=== PATIENT | female | born 2005 | race Two or more races ===

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

== ENCOUNTER 2024-12-21 16:14 | Emergency (ER) | payer BC ==
[~2024-12-21] VITALS: Ht 152.4 cm; Wt 71.2 kg
[2024-12-21] MEDS: ACETAMINOPHEN 500 MG TAB or CAP PO ONE (16:29)
[2024-12-21] MEDS ORDERED: AMOX875T3 PO (18:30)
[2024-12-21] MEDS ORDERED: LORA-622 PO (18:30)
--- NOTE | 2024-12-21 18:30 | ED.PDOC ---
History of Present Illness HPI Comments 19-year-old female complaining of nasal congestion cough which started yesterday. Cough has been nonproductive, no recent travel, no one else at home sick. Patient states she is 29 weeks . States she has been taking Tylenol and guanfacine with little help. Nothing makes it better, nothing makes it worse. Denies any fever or chills. No shortness a breath. No abdominal pain or cramping. Chief Complaint: Flu like Time Seen by MD: 18:03 Primary Care Provider: none Reviewed Notes: Nurses Notes Allergies: Coded Allergies: Aspirin (Verified Allergy, Mild, RASH, 03/13/17) Information Source: Patient Mode of Arrival: Ambulatory Past Medical History PAST MEDICAL HISTORY: Denies Surgical History: Denies all surgeries STATISTICAL ENGINEER History: No Pertinent STATISTICAL ENGINEER History Family History Family History: Unknown Social History Smoker: Non-Smoker Alcohol: Denies ETOH Use Drugs: Denies Drug Use Lives In: Home Constitutional: denies: chills, diaphoresis, fatigue, fever, malaise, sweats, weakness, others EENTM: reports: nasal discharge, nose congestion; denies: blurred vision, double vision, ear bleeding, ear discharge, ear drainage, ear pain, ear ringing, eye pain, eye redness, hearing loss, mouth pain, mouth swelling, nose pain, photophobia, tearing, throat pain, throat swelling, voice changes, others Respiratory: reports: cough; denies: hemoptysis, orthopnea, SOB at rest, shortness of breath, SOB with excertion, stridor, wheezing, others Cardiovascular: denies: chest pain, dizzy spells, diaphoresis, Dyspnea on exertion, edema, irregular heart beat, left arm pain, lightheadedness, palpitations, PND, syncope, others Gastrointestinal: denies: abdomen distended, abdominal pain, blood streaked bowels, constipated, diarrhea, dysphagia, difficulty swallowing, hematemesis, melena, nausea, poor appetite, poor fluid intake, rectal bleeding, rectal pain, vomiting, others Genitourinary: denies: abnormal vagina bleeding, burning, dyspareunia, dysuria, flank pain, frequency, hematuria, incontinence, pain, , vagina discharge, urgency, others Neurological: denies: dizziness, fainting, headache, left sided numbness, left sided weakness, numbness, paresthesia, pre-existing deficit, right sided numbness, right sided weakness, seizure, speech problems, tingling, tremors, weakness, others Musculoskeletal: denies: back pain, gout, joint pain, joint swelling, muscle pain, muscle stiffness, neck pain, others Integumetry: denies: bruises, change in color, change in hair/nails, dryness, laceration, lesions, lumps, rash, wounds, others Physical Exam General Appearance: No Apparent Distress, Normal HEENT: Normal ENT Inspection, Pharynx Normal, TMs Normal Neck: Full Range of Motion, Non-Tender, Normal, Normal Inspection Respiratory: Chest Non-Tender, Lungs Clear, No Accessory Muscle Use, No Respiratory Distress, Normal Breath Sounds Cardiovascular: No Edema, No JVD, No Murmur, No Gallop, Normal Peripheral Pulses, Regular Rate/Rhythm Breast Exam: Deferred Gastrointestinal: No Organomegaly, Non Tender, No Pulsatile Mass, Normal Bowel Sounds, Soft Genitalia: Deferred Pelvic: Deferred Rectal: Deferred Extremities: No calf tenderness, Normal capillary refill, Normal inspection, Normal range of motion, Non-tender, No pedal edema Musculoskeletal : Apperance: Normal Neurologic: Alert, window shade cutter and mounter II-XII nml as Tested, No Motor Deficits, Normal Affect, Normal Mood, No Sensory Deficits Cerebellar Function: Normal Reflexes: Normal Skin: Dry, Normal Color, Warm Lymphatic: No Adenopathy Was a procedure done? Was a procedure done?: No Differential Dx Considerations may include: URI, influenza, COVID, strep throat, pharyngitis, pneumonia X-Ray, Labs, Meds, VS Vital Signs Date Time Temp Pulse Resp B/P (MAP) Pulse Ox O2 Delivery O2 Flow Rate FiO2 12/21/24 16:29 102.4 12/21/24 16:23 102.4 166 20 114/67 (83) 95 102.4 Current Medications Medications (Trade) Dose Ordered Sig/Santa Route Start Time Stop Time Status Last Admin Acetaminophen (Tylenol Tablet Or Capsule) 1,000 mg ONCE ONCE PO 12/21/24 16:30 12/21/24 16:31 DC 12/21/24 16:29 X-Ray, Labs, Meds, VS Comment Imaging: X-rays and CT scans were reviewed and interpreted by this provider, imaging shows no fractures and no pathological disease. Pending radiology review. Laboratory: Labs reviewed and interpreted by this provider. No significant abnormalities noted. Patient has prior medical visits reviewed. Med reconciliation performed Vital signs reviewed Time of 1ST Reevaluation: 18:30 Reevaluation 1ST: Improved Patient Education/Counseling: Diagnosis, Treatment, Need For Follow Up (Follow up in the emergency department in the next 24-48 hours if symptoms worsen. It w as advised to follow up with your primary care doctor in the next 3-4 days for further evaluation.) Family Education/Counseling: Diagnosis Departure 1 Departure Time of Disposition: 18:28 Impression: Primary Impression: Upper respiratory infection Qualified Codes: J06.9 - Acute upper respiratory infection, unspecified Disposition: HOME / SELF CARE / HOMELESS Condition: Fair e-Prescriptions Amoxicillin Trihydrate (Amoxicillin) 875 Mg Tab 1 TAB PO BID for 7 Days, #14 TAB Prov: LUKASZ HAYWARD 12/21/24 Loratadine (Claritin) 10 Mg Tab 1 TAB PO DAILY, #30 TAB 5 Refills Prov: LUKASZ HAYWARD 12/21/24 Discharged With: Self Critical Care Note Critical Care Time?: No Stability Stability form required: No Heart Score Heart Score: Heart Score Response (Comments) Value History N/A 0 EKG N/A 0 Age N/A 0 Risk Factors N/A 0 Troponin N/A 0 Total 0 LUKASZ HAYWARD December 21, 2024 18:30
[2024-12-21 18:44] VITALS: BP 113/61; PULSE 121; RESP 16; TEMP 99; O2SAT 99
== END 2024-12-21 18:42 | disposition home or self-care (01) ==
LOC: ER 16:14
DX: O99.513 Diseases of the respiratory system complicating pregnancy, third trimester (principal); J06.9 Acute upper respiratory infection, unspecified; Z3A.29 29 weeks gestation of pregnancy; Z88.6 Allergy status to analgesic agent

== ENCOUNTER 2025-01-21 12:53 | Observation (INO) | payer BC ==
[~2025-01-21 12:53] MED LIST: AMOX875T3 PO; LORA-622 PO
[2025-01-21] MEDS ORDERED: PREN-96 PO (13:48)
--- NOTE | 2025-01-21 13:53 | DVH ---
OB ULTRASOUND, LIMITED CLINICAL INDICATION: Grade 3 placenta TECHNIQUE: Multiple grayscale ultrasound and M-mode images were obtained of the pelvis for evaluation of intrauterine . COMPARISON: None FINDINGS: A single living fetus is seen in cephalic presentation. Biophysical profile: 03/12 breathin movements: 2 tone: 2 Amniotic fluid: 2 Placenta: Fundal/posterior, grade 3. Amniotic fluid: Visibly normal. DAMIAN 14.6 cm heart rate: 146 beats/min. A complete anatomic survey was not performed on this exam. IMPRESSION: 1. Grade 3 fundal/ posterior placenta 2. Biophysical profile: 03/12 3. Per the certified residential medication aide, the breathing appeared labored.
--- NOTE | 2025-01-22 14:26 | DVHDS2 ---
Physician Discharge Progress N Final Diagnosis: grade 3 placenta 34 wks Operations or Procedures: Operations or Procedures nst reactive reviwed,sono Condition on Discharge: Good Disposition: Home Discharge Instructions: Diet: Regular Activity: No Restrictions, As Tolerated Medications: na Follow Up Care: Specialist: 1w Discharge Statement: "Patient was advised to return to the ER or call 911 if any headaches, dizziness, shortness of breath, chest pain, abdominal pain, bleeding, fevers, or worsening of medical condition. Patient was counseled about treatment plan, medications, possible side effects, patientverbalized understanding. All questions were answered to the best of my ability. This discharge took greater then 30 minutes in planning, reviewing documentation, counseling the patient, and discussing with other team members." Visit Coding OBGYN Date of Service: Jan 22, 2025 Billing Provider: MERVAT SCHILLING DO VICE PRESIDENT PLANNING Common Visit Codes: 10354-KJOCXQO OBS CARE (HIGH) VICE PRESIDENT PLANNING Procedure Codes: 46537-34- NON-STRESS TEST MERVAT SCHILLING DO Jan 22, 2025 14:26
[2025-01-29] MEDS ORDERED: CEPH250C PO (20:08)
== END 2025-01-21 14:22 | disposition home or self-care (01) ==
LOC: LDRP 12:53 → UNDOADMOB 12:53 → LDRP 13:03
PROVIDERS: ADMIT Obstetrics & Gynecology; ATTEND Obstetrics & Gynecology
DX: O43.893 Other placental disorders, third trimester (principal); Z3A.34 34 weeks gestation of pregnancy; Z79.899 Other long term (current) drug therapy; Z98.890 Other specified postprocedural states
CPT/HCPCS: 76818; 81002; 94760; G0378; 59025; 76819

== ENCOUNTER 2025-01-28 13:53 | Observation (INO) | payer BC ==
[~2025-01-28 13:53] MED LIST changes: +PREN-96 PO
--- NOTE | 2025-01-28 15:34 | DVH ---
BIOPHYSICAL PROFILE HISTORY: Grade 3 placenta TECHNIQUE: Multiple real-time grayscale sonographic images through the gravid uterus of the fetus wi th duplex Doppler color flow. FINDINGS: BIOPHYSICAL PROFILE: breathing score: 2 movement score: 2 tone score: 2 Quantitative DAMIAN score: 2 Total score: 8 out of 8 Placenta fundal /posteriorly positioned. Multiple placental hypoechoic lesions that appear avascular, likely placental lakes. lie cephalic. Heart rate of 145 beats per minute. IMPRESSION: Biophysical profile score: 8 out of 8
--- NOTE | 2025-01-29 13:43 | DVHDS2 ---
Physician Discharge Progress N Final Diagnosis: iup at 35wks with previous cs Operations or Procedures: Operations or Procedures nst reviwed reactive ,sono Condition on Discharge: Good Disposition: Home Discharge Instructions: Diet: Regular Activity: No Restrictions, As Tolerated Medications: na Follow Up Care: Specialist: 1w Discharge Statement: "Patient was advised to return to the ER or call 911 if any headaches, dizziness, shortness of breath, chest pain, abdominal pain, bleeding, fevers, or worsening of medical condition. Patient was counseled about treatment plan, medications, possible side effects, patientverbalized understanding. All questions were answered to the best of my ability. This discharge took greater then 30 minutes in planning, reviewing documentation, counseling the patient, and discussing with other team members." Visit Coding OBGYN Date of Service: Jan 28, 2025 Billing Provider: MERVAT SCHILLING DO MIXER OPERATOR RAW SALT Common Visit Codes: 92218-UNTSDAQ OBS CARE (HIGH) MIXER OPERATOR RAW SALT Procedure Codes: 30519-24- NON-STRESS TEST MERVAT SCHILLING DO Jan 29, 2025 13:43
[2025-01-29] MEDS ORDERED: CEPH250C PO ×2 (20:08)
== END 2025-01-28 15:25 | disposition home or self-care (01) ==
LOC: LDRP 13:53
PROVIDERS: ADMIT Obstetrics & Gynecology; ATTEND Obstetrics & Gynecology
DX: O62.9 Abnormality of forces of labor, unspecified (principal); Z3A.35 35 weeks gestation of pregnancy; Z79.899 Other long term (current) drug therapy; Z98.891 History of uterine scar from previous surgery
CPT/HCPCS: 76818; 81002; 94760; G0378; 59025; 76819

== ENCOUNTER 2025-01-29 17:25 | Observation (INO) | payer BC ==
[~2025-01-29] VITALS: Ht 152.4 cm; Wt 75.7 kg
[2025-01-29 19:44] VITALS: TEMP 99.5
[2025-01-29] MEDS: ACETAMINOPHEN 325 MG TAB PO ONE (19:44)
[2025-01-29 19:57] LABS: Urine Bacteria MANY /hpf (None Seen); Urine Blood 1+ /uL (Negative); Urine Clarity Turbid (Clear); Urine Color Light-Orange (Yellow); Urine Hyaline Cast FEW /lpf (0 - 2); Urine Mucus FEW (None Seen); Urine Protein, UAD TRACE (Negative); Urine Squamous Epithelial Cell MOD /hpf (<5); Urine Urobilinogen Normal (Negative); Urine WBC 33 /HPF (0-5); Urine WBC Clumps PRESENT /hpf (None Seen)
[2025-01-29] MEDS ORDERED: CEPH250C PO ×2 (20:08)
== END 2025-01-29 20:22 | disposition home or self-care (01) ==
LOC: ER 17:25 → LDRP 17:43
PROVIDERS: ADMIT Obstetrics & Gynecology; ATTEND Obstetrics & Gynecology
DX: O62.9 Abnormality of forces of labor, unspecified (principal); O99.891 Other specified diseases and conditions complicating pregnancy; M54.9 Dorsalgia, unspecified; Z3A.00 Weeks of gestation of pregnancy not specified; Z79.899 Other long term (current) drug therapy
CPT/HCPCS: 59025; 81001; 87086; 94760; G0378

== ENCOUNTER 2025-02-04 10:09 | Observation (INO) | payer BC ==
[~2025-02-04 10:09] MED LIST changes: +CEPH250C PO
--- NOTE | 2025-02-04 19:22 | DVH ---
BIOPHYSICAL PROFILE HISTORY: Grade 3 placenta Comparison Study: US BIOPHYSICAL PROFILE on DOS: 01/28/25, US BIOPHYSICAL PROFILE on DOS: 01/21/25 TECHNIQUE: Multiple real-time grayscale sonographic images through the gravid uterus of the fetus wi th duplex Doppler color flow and M-mode spectral analysis FINDINGS: BIOPHYSICAL PROFILE: breathing score: 2 movement score: 2 tone score: 2 Quantitative DAMIAN score: 2 (DAMIAN: 10.7 Cm.) Total score: 8/8 The cervix is not visualized Single live fetus in cephalic presentation. heart rate 155 beats per minute. Grade 3, fundal placenta without previa or abruption IMPRESSION: Biophysical profile score: 8
--- NOTE | 2025-02-05 07:44 | DVHDS2 ---
Physician Discharge Progress N Final Diagnosis: gdm 36wks Operations or Procedures: Operations or Procedures nst reactive reviwed,sono Condition on Discharge: Good Disposition: Home Discharge Instructions: Diet: Regular Activity: No Restrictions, As Tolerated Medications: na Follow Up Care: Specialist: 3d Discharge Statement: "Patient was advised to return to the ER or call 911 if any headaches, dizziness, shortness of breath, chest pain, abdominal pain, bleeding, fevers, or worsening of medical condition. Patient was counseled about treatment plan, medications, possible side effects, patientverbalized understanding. All questions were answered to the best of my ability. This discharge took greater then 30 minutes in planning, reviewing documentat ion, counseling the patient, and discussing with other team members." Visit Coding OBGYN Date of Service: Feb 04, 2025 Billing Provider: MERVAT SCHILLING DO IMPROVEMENT SPEC Common Visit Codes: [id number] INP/OBS CARE (HIGH) IMPROVEMENT SPEC Procedure Codes: 23438-44- NON-STRESS TEST MERVAT SCHILLING DO Feb 05, 2025 07:44
== END 2025-02-04 17:26 | disposition home or self-care (01) ==
LOC: LDRP 16:10
PROVIDERS: ADMIT Obstetrics & Gynecology; ATTEND Obstetrics & Gynecology
DX: O24.419 Gestational diabetes mellitus in pregnancy, unspecified control (principal); Z3A.36 36 weeks gestation of pregnancy; Z79.899 Other long term (current) drug therapy; Z98.890 Other specified postprocedural states
CPT/HCPCS: 76818; 81002; 94760; G0378; 59025; 76819

== ENCOUNTER 2025-02-11 02:37 | Observation (INO) | payer BC ==
[~2025-02-11] VITALS: Ht 152.4 cm; Wt 666.8 kg
--- NOTE | 2025-02-11 16:18 | DVH ---
BIOPHYSICAL PROFILE HISTORY: grade 3 placenta TECHNIQUE: Multiple transabdominal real-time grayscale sonographic images through the gravid uterus of the fetus with duplex Doppler color flow and M-mode spectral analysis FINDINGS: BIOPHYSICAL PROFILE: breathing score: 2 movement score: 2 tone score: 2 Quantitative DAMIAN score: 2 (DAMIAN: 15.3 Cm.) Total score: 8 The cervix is not definitely visualized Single live fetus in cephalic presentation. heart rate 149 beats per minute. Grade 3 fundal placenta without previa or abruption No Nuchal cord is visualized . The cord appears to be draped across the face. IMPRESSION: Biophysical profile score: 8
--- NOTE | 2025-02-16 15:09 | DVHDS2 ---
Physician Discharge Progress N Final Diagnosis: gdm 37wks Operations or Procedures: Operations or Procedures nst reactive reviwed.sono Condition on Discharge: Good Disposition: Home Discharge Instructions: Diet: Regular Activity: Light activity Medications: na Follow Up Care: Specialist: 1w Discharge Statement: "Patient was advised to return to the ER or call 911 if any headaches, dizziness, shortness of breath, chest pain, abdominal pain, bleeding, fevers, or worsening of medical condition. Patient was counseled about treatment plan, medications, possible side effects, patientverbalized understanding. All questions were answered to the best of my ability. This discharge took greater then 30 minutes in planning, reviewing documentation, counseling the patient, and discussing with other team members." Visit Coding OBGYN Date of Service: Feb 11, 2025 Billing Provider: MERVAT SCHILLING DO SAMPLE TAILOR Common Visit Codes: [id number] OBS CARE (HIGH) SAMPLE TAILOR Procedure Codes: 05829-61- NON-STRESS TEST MERVAT SCHILLING DO Feb 16, 2025 15:09
== END 2025-02-11 16:25 | disposition home or self-care (01) ==
LOC: LDRP 14:50
PROVIDERS: ADMIT Obstetrics & Gynecology; ATTEND Obstetrics & Gynecology
DX: Z36.89 Encounter for other specified antenatal screening (principal); Z3A.37 37 weeks gestation of pregnancy; Z79.899 Other long term (current) drug therapy; Z98.890 Other specified postprocedural states
CPT/HCPCS: 76818; 81002; 94760; G0378; 59025; 76819

== ENCOUNTER 2025-02-18 15:50 | Observation (INO) | payer BC ==
--- NOTE | 2025-02-18 17:17 | DVH ---
BIOPHYSICAL PROFILE HISTORY: Grade 3 placenta TECHNIQUE: Multiple transabdominal real-time grayscale sonographic images through the gravid uterus of the fetus with duplex Doppler color flow and M-mode spectral analysis FINDINGS: BIOPHYSICAL PROFILE: breathing score: 2 movement score: 2 tone score: 2 Quantitative DAMIAN score: 2 (DAMIAN: 9.3 Cm.) Total score: 8/8 The cervix not well seen Single live fetus in vertex presentation. heart rate 160 beats per minute. Fundal Grade 3 placenta without previa or abruption Single live fetus at 30 weeks 1 day Biophysical profile score 8/8 corresponding to an CARLEEN of 03/03/2025 IMPRESSION: 1. Biophysical profile score: 8/8 HS:Y
--- NOTE | 2025-02-19 13:43 | DVHDS2 ---
Physician Discharge Progress N Final Diagnosis: grade 3 [id number] Operations or Procedures: Operations or Procedures nst reactive reviwed,sono Condition on Discharge: Good Disposition: Home Discharge Instructions: Diet: Regular Activity: No Restrictions, As Tolerated Medications: na Follow Up Care: Specialist: 4d Discharge Statement: "Patient was advised to return to the ER or call 911 if any headaches, dizziness, shortness of breath, chest pain, abdominal pain, bleeding, fevers, or worsening of medical condition. Patient was counseled about treatment plan, medications, possible side effects, patientverbalized understanding. All questions were answered to the best of my ability. This discharge took greater then 30 minutes in planning, reviewing documentation, counseling the patient, and discussing with other team members." Visit Coding OBGYN Date of Service: Feb 18, 2025 Billing Provider: MERVAT SCHILLING DO GRADES 1 6 TUTOR Common Visit Codes: 82995-NPMQVPS OBS CARE (HIGH) GRADES 1 6 TUTOR Procedure Codes: 02644-91- NON-STRESS TEST MERVAT SCHILLING DO Feb 19, 2025 13:43
== END 2025-02-18 17:30 | disposition home or self-care (01) ==
LOC: LDRP 15:50
PROVIDERS: ADMIT Obstetrics & Gynecology; ATTEND Obstetrics & Gynecology
DX: O43.893 Other placental disorders, third trimester (principal); Z3A.38 38 weeks gestation of pregnancy; Z79.899 Other long term (current) drug therapy; Z98.890 Other specified postprocedural states
CPT/HCPCS: 76818; 81002; 94760; G0378; 59025; 76819

== ENCOUNTER 2025-02-23 11:30 | Observation (INO) | payer BC ==
[2025-02-23 12:20] LABS: Hematocrit 33.8 % (36.0-46.0); Hemoglobin 11.0 g/dL (12.2-16.2); Mean Corpuscular Hemoglobin 23.1 pg (28.0-32.0); Mean Corpuscular Volume 70.8 fL (80.0-100.0); Nucleated Red Blood Cells % 0.1 %
[2025-02-23 12:32] LABS: Albumin 3.9 g/dL (3.2-4.8); Anion Gap 12 (5-15); BUN/Creatinine Ratio 11.1 (10.0-20.0); Calcium 9.1 mg/dL (8.7-10.4); Potassium 3.7 mmol/L (3.5-5.1); Sodium 139 mmol/L (136-145); Total Protein 6.4 g/dL (5.7-8.2); Uric Acid 5.4 mg/dL (3.1-7.8)
[2025-02-23 12:33] LABS: Alanine Aminotransferase < 9 U/L (7-40); Alkaline Phosphatase 333 U/L (46-116); Bilirubin, Total 0.3 mg/dL (0.2-1.0); Blood Urea Nitrogen 6 mg/dL (9-23); Carbon Dioxide 19 mmol/L (20-31); Chloride 108 mmol/L (98-107); Glucose 110 mg/dL (74-106)
[2025-02-23 12:39] LABS: INR 0.95 (0.9-1.15); Partial Thromboplastin Time 26.8 SEC (24.5-34.5); Prothrombin Time 10.1 sec (9.3-11.8)
[2025-02-23 12:44] LABS: Protein, Urine 33.9 mg/dL (1-14)
[2025-02-23 12:45] LABS: Urine Protein, UAD TRACE (Negative)
--- NOTE | 2025-02-23 13:11 | DVH ---
BIOPHYSICAL PROFILE HISTORY: PIH TECHNIQUE: Multiple transabdominal real-time grayscale sonographic images through the gravid uterus of the fetus with duplex Doppler color flow and M-mode spectral analysis FINDINGS: BIOPHYSICAL PROFILE: breathing score: 2 movement score: 2 tone score: 2 Quantitative DAMIAN score: 2 (DAMIAN: 14.0 Cm.) Total score: 8 The cervix not well visualized. Single live fetus in cephalic presentation. heart rate 138 beats per minute. Grade 3 fundal placenta without previa or abruption IMPRESSION: Biophysical profile score: 8
--- NOTE | 2025-02-23 18:41 | DVHDS2 ---
Physician Discharge Progress N Final Diagnosis: ruled out preeclampsia Operations or Procedures: Operations or Procedures S: 19yo IUP@38.6wks, Pt was sent down from Dr. Ewing's office for elevated BP. Denies UCs/LOF/VB/GUADALUPE/vision changes/RUQ pain. Endorses +FM. PNC complicated by grade 3 placenta. O: VSS, normotensive NST reactive Laboratory Tests Test 02/23/25 11:50 02/23/25 12:00 Range/Units White Blood Count 8.2 4.4-10.8 10^3/uL Red Blood Count 4.77 4.0-5.20 10^6/uL Hemoglobin 11.0 L 12.2-16.2 g/dL Hematocrit 33.8 L 36.0-46.0 % Mean Corpuscular Volume 70.8 L 80.0-100.0 fL Mean Corpuscular Hemoglobin 23.1 L 28.0-32.0 pg Mean Corpuscular Hemoglobin Concent 32.6 32.0-36.0 g/dL Red Cell Distribution Width 22.7 H 11.8-14.3 % Platelet Count 302 140-450 10^3/uL Mean Platelet Volume 7.9 6.9-10.8 fL Neutrophils (%) (Auto) 66.9 37.0-80.0 % Lymphocytes (%) (Auto) 22.5 10.0-50.0 % Monocytes (%) (Auto) 8.7 0.0-12.0 % Eosinophils (%) (Auto) 1.5 0.0-7.0 % Basophils (%) (Auto) 0.4 0.0-2.0 % Neutrophils # (Auto) 5.5 1.6-8.6 10 ^3/uL Lymphocytes # (Auto) 1.8 0.4-5.4 10 ^3/uL Monocytes # (Auto) 0.7 0-1.3 10 ^3/uL Eosinophils # (Auto) 0.1 0-0.8 10 ^3/uL Basophils # (Auto) 0 0-0.2 10 ^3/uL Nucleated Red Blood Cells 0.1 % Prothrombin Time 10.1 9.3-11.8 sec Prothrombin Time INR 0.95 0.9-1.15 Activated Partial Thromboplast Time 26.8 24.5-34.5 SEC Sodium Level 139 136-145 mmol/L Potassium Level 3.7 3.5-5.1 mmol/L Chloride Level 108 H 98-107 mmol/L Carbon Dioxide Level 19 L 20-31 mmol/L Anion Gap 12 5-15 Blood Urea Nitrogen 6 L 9-23 mg/dL Creatinine 0.54 L 0.550-1.02 mg/dL Glomerular Filtration Rate Calc 134 >90 mL/min BUN/Creatinine Ratio 11.1 10.0-20.0 Serum Glucose 110 H 74-106 mg/dL Uric Acid 5.4 3.1-7.8 mg/dL Calcium Level 9.1 8.7-10.4 mg/dL Total Bilirubin 0.3 0.2-1.0 mg/dL Aspartate Amino Transferase (AST) 15 13-40 U/L Alanine Aminotransferase (ALT) < 9 7-40 U/L Alkaline Phosphatase 333 H 46-116 U/L Total Protein 6.4 5.7-8.2 g/dL Albumin 3.9 3.2-4.8 g/dL Urine Color Yellow Yellow Urine Clarity Clear Clear Urine pH 6.5 5.0-9.0 Urine Specific Junction 1.017 1.001-1.035 Urine Protein Trace H Negative Urine Ketones Negative Negative Urine Blood Trace H Negative /uL Urine Nitrite Negative Negative Urine Bilirubin Negative Negative Urine Urobilinogen Normal Negative mg/dL Urine Leukocyte Esterase Negative Negative /uL Urine RBC 4 0 - 4 /hpf Urine Microscopic WBC 2 0-5 /HPF Urine Squamous Epithelial Cells Few <5 /hpf Urine Bacteria None seen None Seen /hpf Urine Mucus Few None Seen Urine Creatinine 139.91 H 30.0-125.0 mg/dL Urine Protein/Creatinine Ratio 0.24 Urine Glucose Normal Normal mg/dL Urine Total Protein 33.9 H 1-14 mg/dL A: 19yo IUP@38.6wks ruled out preeclampsia P: D/C home Plan to return with 24 hour urine collection on saturday02/26/25 when you return for your schedule IOL for grade 3 placenta. FKC/preE/labor precautions reviewed Dr. Ewing consulted, agrees with POC. Other Interventions Other Interventions [facility] [id number] [place] [id number] Ph: [phone] DIAGNOSTIC IMAGING Diagnostic Imaging Report : [id number] Signed PATIENT: NETTE MONTEMAYOR ACCT: [id number] UNIT: [id number] : 2005 [address]: [facility] ROOM / BED: TRIAGE3 / A AGE / SEX: 19 / F ADM STATUS: ADM IN SERVICE [id number] ORDERING PHYSICIAN: GEORGE MCKINNEY CNM PROCEDURE(s): BPP - BIOPHYSICAL PROFILE REASON: PIH ORDER NUMBER(s): [id number], ACCESSION NUMBER(s): [id number] BIOPHYSICAL PROFILE HISTORY: PIH TECHNIQUE: Multiple transabdominal real-time grayscale sonographic images through the gravid uterus of the fetus with duplex Doppler color flow and M-mode spectral analysis FINDINGS: BIOPHYSICAL PROFILE: breathing score: 2 movement score: 2 tone score: 2 Quantitative DAMIAN score: 2 (DAMIAN: 14.0 Cm.) Total score: 8 The cervix not well visualized. Single live fetus in cephalic presentation. heart rate 138 beats per minute. Grade 3 fundal placenta without previa or abruption IMPRESSION: Biophysical profile score: 8 ATED BY: MEDINA SINGER MD DICTATED DATE/TIME: 02/23/25 1309 SIGNED BY: MEDINA SINGER MD SIGNED DATE/TIME: 02/23/25 1309 CC: Condition on Discharge: Stable Disposition: Home Discharge Instructions: Diet: Regular Activity: No Restrictions, As Tolerated Medications: Continue all prescription medication exactly as prescribed Follow Up Care: Specialist: Plan to return with 24 hour urine collection on saturday02/26/25 when you return for your schedule IOL for grade 3 placenta. Discharge Statement: "Patient was advised to return to the ER or call 911 if any headaches, dizziness, shortness of breath, chest pain, abdominal pain, bleeding, fevers, or worsening of medical condition. Patient was counseled about treatment plan, medications, possible side effects, patientverbalized understanding. All questions were answered to the best of my ability. This discharge took greater then 30 minutes in planning, reviewing documenta tion, counseling the patient, and discussing with other team members." Visit Coding OBGYN Date of Service: Feb 23, 2025 Billing Provider: GEORGE MCKINNEY CNM LICENSED LIFE AND HEALTH AGENT Common Visit Codes: [id number] OBS CARE (HIGH) LICENSED LIFE AND HEALTH AGENT Procedure Codes: 91944-91- NON-STRESS TEST GEORGE MCKINNEY Feb 23, 2025 18:41
== END 2025-02-23 13:40 | disposition home or self-care (01) ==
LOC: LDRP 11:30
PROVIDERS: ADMIT Obstetrics & Gynecology; ATTEND Obstetrics & Gynecology
DX: O13.3 Gestational [pregnancy-induced] hypertension without significant proteinuria, third trimester (principal); Z3A.38 38 weeks gestation of pregnancy; Z79.899 Other long term (current) drug therapy
CPT/HCPCS: 36415; 76818; 80053; 81001; 81002; 82570; 84156; 84550; 85025; 85610; 85730; G0378; 59025; 76819

== ENCOUNTER 2025-02-25 05:46 | Inpatient (IN) | payer BC ==
[~2025-02-25] VITALS: Ht 152.4 cm; Wt 77.1 kg
[2025-02-26] MEDS ORDERED: LIDOCAINE 2%HCL (LOCAL ANESTH.) INJ 20ML MDV IJ PRN (20:15)
[2025-02-26] MEDS ORDERED: NALBUPHINE HCL 10 MG/1ml INJECTION IV PRN (20:15)
[2025-02-26 20:54] LABS: Hematocrit 34.3 % (36.0-46.0); Hemoglobin 11.4 g/dL (12.2-16.2); Mean Corpuscular Hemoglobin 23.4 pg (28.0-32.0); Mean Corpuscular Volume 70.3 fL (80.0-100.0); Nucleated Red Blood Cells % 0.1 %
[2025-02-26 21:08] LABS: INR 0.95 (0.9-1.15); Partial Thromboplastin Time 26.4 SEC (24.5-34.5); Prothrombin Time 10.1 sec (9.3-11.8)
[2025-02-26 21:12] LABS: Albumin 4.3 g/dL (3.2-4.8); Anion Gap 13 (5-15); BUN/Creatinine Ratio 16.7 (10.0-20.0); Bilirubin, Total 0.3 mg/dL (0.2-1.0); Blood Urea Nitrogen 10 mg/dL (9-23); Calcium 10.0 mg/dL (8.7-10.4); Potassium 4.0 mmol/L (3.5-5.1); Sodium 139 mmol/L (136-145); Total Protein 6.9 g/dL (5.7-8.2)
[2025-02-26 21:13] LABS: Alanine Aminotransferase < 9 U/L (7-40); Alkaline Phosphatase 365 U/L (46-116); Carbon Dioxide 19 mmol/L (20-31); Chloride 107 mmol/L (98-107); Glucose 74 mg/dL (74-106)
[2025-02-26] MEDS: LACTATED RINGER'S 1,000 ML IV SCH (22:10)
--- NOTE | 2025-02-26 23:41 | DVHPN2 ---
CNM Labor Progress Note Date and Time Seen Date Seen: Feb 26, 2025 Time Seen: 23:00 Subjective Patient reports: No new complaints Subjective Comment Patient is 19 y/o Here for IOL for grade 3 placenta Monitoring Method Monitoring Method: External Heart Rate Heart Rate Baseline: 135 Heart Rate Variability: Moderate Presence of FHR Accelerations: Yes Presence of FHR Decelerations: No Changes in Trends of Patterns: No Are all 5 Components of the FH: Yes Contractions Contractions Frequency: Other Duration of Contraction: 60 Contractions Intensity: Mild Contractions Resting Tone: Relaxed If NO What Corrective Measures: 1000 ml IVF Hydration Membranes Membranes: Intact Vaginal Exam Vag Exam Deferred: No Vaginal Exam Dilation: 1 (1.5) Vaginal Exam Effacement: 75 Vaginal Exam Station: -3 Vaginal Exam Presentation: VTX Vaginal Exam Show: None Medications Medications - Pitocin: No Medications - Pain Medications: Start Misoprostal @ 0400 Medication - Epidural: No Lab Results Lab Results Current Medications Medications (Trade) Dose Ordered Sig/Santa Start Time Stop Time Status Last Admin Dose Admin Lactated Ringer's 1,000 ml @ 125 mls/hr Q8H 02/26/25 20:15 02/26/25 22:45 125 MLS/HR Nalbuphine HCl (Nubain) 10 mg Q4HP PRN 02/26/25 20:15 Witch Tatiana (Tucks) 1 pad PRN PRN 02/26/25 20:15 Sodium Lauryl Sulfate (Phisoderm) 240 ml PRN PRN 02/26/25 20:15 Benzocaine (Dermoplast) 1 applic PRN PRN 02/26/25 20:15 Misoprostol (Cytotec) 50 mcg Q4HPRN PRN 02/26/25 20:15 Lidocaine HCl (Xylocaine) 20 ml ONCE PRN 02/26/25 20:15 Laboratory Tests Test 02/26/25 20:35 Range/Units White Blood Count 7.9 4.4-10.8 10^3/uL Red Blood Count 4.87 4.0-5.20 10^6/uL Hemoglobin 11.4 L 12.2-16.2 g/dL Hematocrit 34.3 L 36.0-46.0 % Mean Corpuscular Volume 70.3 L 80.0-100.0 fL Mean Corpuscular Hemoglobin 23.4 L 28.0-32.0 pg Mean Corpuscular Hemoglobin Concent 33.3 32.0-36.0 g/dL Red Cell Distribution Width 24.2 H 11.8-14.3 % Platelet Count 336 140-450 10^3/uL Mean Platelet Volume 8.0 6.9-10.8 fL Neutrophils (%) (Auto) 65.5 37.0-80.0 % Lymphocytes (%) (Auto) 23.1 10.0-50.0 % Monocytes (%) (Auto) 9.7 0.0-12.0 % Eosinophils (%) (Auto) 1.2 0.0-7.0 % Basophils (%) (Auto) 0.5 0.0-2.0 % Neutrophils # (Auto) 5.2 1.6-8.6 10 ^3/uL Lymphocytes # (Auto) 1.8 0.4-5.4 10 ^3/uL Monocytes # (Auto) 0.8 0-1.3 10 ^3/uL Eosinophils # (Auto) 0.1 0-0.8 10 ^3/uL Basophils # (Auto) 0 0-0.2 10 ^3/uL Nucleated Red Blood Cells 0.1 % Prothrombin Time 10.1 9.3-11.8 sec Prothrombin Time INR 0.95 0.9-1.15 Activated Partial Thromboplast Time 26.4 24.5-34.5 SEC Sodium Level 139 136-145 mmol/L Potassium Level 4.0 3.5-5.1 mmol/L Chloride Level 107 98-107 mmol/L Carbon Dioxide Level 19 L 20-31 mmol/L Anion Gap 13 5-15 Blood Urea Nitrogen 10 9-23 mg/dL Creatinine 0.60 0.550-1.02 mg/dL Glomerular Filtration Rate Calc 131 >90 mL/min BUN/Creatinine Ratio 16.7 10.0-20.0 Serum Glucose 74 74-106 mg/dL Calcium Level 10.0 8.7-10.4 mg/dL Total Bilirubin 0.3 0.2-1.0 mg/dL Aspartate Amino Transferase (AST) 17 13-40 U/L Alanine Aminotransferase (ALT) < 9 7-40 U/L Alkaline Phosphatase 365 H 46-116 U/L Total Protein 6.9 5.7-8.2 g/dL Albumin 4.3 3.2-4.8 g/dL Treponema pallidum Antibody Non-reactive Negative Hepatitis B Surface Antigen Pending Hepatitis C Antibody Pending HIV (1&2) Antibody Negative Negative Consulting with Consulting with: None Plan Plan discussed with: Patient Visit Coding OBGYN Date of Service: Feb 26, 2025 Billing Provider: MERVAT SCHILLING DO ULTRASONIC TESTER Common Visit Codes: [id number] OBS CARE (MOD) ANNAMARIE SCHNEIDER CNMJul 2024 23:41
[2025-02-27 00:01] LABS: Urine Protein, UAD TRACE (Negative)
[2025-02-27 00:23] LABS: Amphetamine Screen, Urine Neg (NEGATIVE); Barbiturate Scree,Urine Neg (NEGATIVE); Benzodiazephine Screen, Urine Neg (NEGATIVE); Cannabinoid Screen, Urine Neg (NEGATIVE); Cocaine Screen, Urine Neg (NEGATIVE); Opiate Scree,Urine Neg (NEGATIVE); Phencyclidine Screen, Urine Neg (NEGATIVE)
[2025-02-27 02:10] LABS: Protein, Urine 47.9 mg/dL (1-14)
[2025-02-27 02:45] LABS: Protein, Urine 18.9 mg/dL (1-14)
[2025-02-27 02:48] LABS: 24 Hr. Total Protein, Urine 283.5 mg/24 Hr (<149.1); Urine Total Volume, 24 Hours 1500.0 mL
--- NOTE | 2025-02-27 06:27 | DVHPN2 ---
[facility] Labor Progress Note Date and Time Seen Date Seen: Feb 27, 2025 Time Seen: 06:20 Subjective Patient reports: No new complaints Subjective Comment First dose of Misoprostol 50 mcg given @ 0400 Monitoring Method Monitoring Method: External Heart Rate Heart Rate Baseline: 125 Heart Rate Variability: Moderate Presence of FHR Accelerations: Yes Presence of FHR Decelerations: No Changes in Trends of Patterns: No Are all 5 Components of the FH: Yes Contractions Contractions Frequency: Occasional Contractions Intensity: Mild Membranes Membranes: Intact Lab Results Lab Results Current Medications Medications (Trade) Dose Ordered Sig/Santa Start Time Stop Time Status Last Admin Dose Admin Lactated Ringer's 1,000 ml @ 125 mls/hr Q8H 02/26/25 20:15 02/26/25 22:45 125 MLS/HR Nalbuphine HCl (Nubain) 10 mg Q4HP PRN 02/26/25 20:15 Witch Tatiana (Tucks) 1 pad PRN PRN 02/26/25 20:15 Sodium Lauryl Sulfate (Phisoderm) 240 ml PRN PRN 02/26/25 20:15 Benzocaine (Dermoplast) 1 applic PRN PRN 02/26/25 20:15 Misoprostol (Cytotec) 50 mcg Q4HPRN PRN 02/26/25 20:15 02/27/25 04:00 50 MCG Lidocaine HCl (Xylocaine) 20 ml ONCE PRN 02/26/25 20:15 Laboratory Tests Test 02/26/25 20:35 02/26/25 20:20 Range/Units White Blood Count 7.9 4.4-10.8 10^3/uL Red Blood Count 4.87 4.0-5.20 10^6/uL Hemoglobin 11.4 L 12.2-16.2 g/dL Hematocrit 34.3 L 36.0-46.0 % Mean Corpuscular Volume 70.3 L 80.0-100.0 fL Mean Corpuscular Hemoglobin 23.4 L 28.0-32.0 pg Mean Corpuscular Hemoglobin Concent 33.3 32.0-36.0 g/dL Red Cell Distribution Width 24.2 H 11.8-14.3 % Platelet Count 336 140-450 10^3/uL Mean Platelet Volume 8.0 6.9-10.8 fL Neutrophils (%) (Auto) 65.5 37.0-80.0 % Lymphocytes (%) (Auto) 23.1 10.0-50.0 % Monocytes (%) (Auto) 9.7 0.0-12.0 % Eosinophils (%) (Auto) 1.2 0.0-7.0 % Basophils (%) (Auto) 0.5 0.0-2.0 % Neutrophils # (Auto) 5.2 1.6-8.6 10 ^3/uL Lymphocytes # (Auto) 1.8 0.4-5.4 10 ^3/uL Monocytes # (Auto) 0.8 0-1.3 10 ^3/uL Eosinophils # (Auto) 0.1 0-0.8 10 ^3/uL Basophils # (Auto) 0 0-0.2 10 ^3/uL Nucleated Red Blood Cells 0.1 % Prothrombin Time 10.1 9.3-11.8 sec Prothrombin Time INR 0.95 0.9-1.15 Activated Partial Thromboplast Time 26.4 24.5-34.5 SEC Sodium Level 139 136-145 mmol/L Potassium Level 4.0 3.5-5.1 mmol/L Chloride Level 107 98-107 mmol/L Carbon Dioxide Level 19 L 20-31 mmol/L Anion Gap 13 5-15 Blood Urea Nitrogen 10 9-23 mg/dL Creatinine 0.60 0.550-1.02 mg/dL Glomerular Filtration Rate Calc 131 >90 mL/min BUN/Creatinine Ratio 16.7 10.0-20.0 Serum Glucose 74 74-106 mg/dL Uric Acid 6.1 3.1-7.8 mg/dL Calcium Level 10.0 8.7-10.4 mg/dL Total Bilirubin 0.3 0.2-1.0 mg/dL Aspartate Amino Transferase (AST) 17 13-40 U/L Alanine Aminotransferase (ALT) < 9 7-40 U/L Alkaline Phosphatase 365 H 46-116 U/L Total Protein 6.9 5.7-8.2 g/dL Albumin 4.3 3.2-4.8 g/dL Treponema pallidum Antibody Non-reactive Negative Hepatitis B Surface Antigen Pending Hepatitis C Antibody Pending HIV (1&2) Antibody Negative Negative Urine Color Yellow Yellow Urine Clarity Turbid H Clear Urine pH 6.0 5.0-9.0 Urine Specific [place] 1.023 1.001-1.035 Urine Protein Trace H Negative Urine Ketones Negative Negative Urine Blood 1+ H Negative /uL Urine Nitrite Negative Negative Urine Bilirubin Negative Negative Urine Urobilinogen Normal Negative mg/dL Urine Leukocyte Esterase 1+ Negative /uL Urine RBC 5 0 - 4 /hpf Urine Microscopic WBC 9 H 0-5 /HPF Urine Squamous Epithelial Cells Few <5 /hpf Urine Bacteria Few H None Seen /hpf Urine Mucus Few None Seen Urine Creatinine 168.01 H 30.0-125.0 mg/dL Urine Total Protein 24 Hour 283.5 <149.1 mg/24 Hr Urine Protein/Creatinine Ratio 0.29 Urine Glucose Normal Normal mg/dL Urine Total Protein 18.9 H 1-14 mg/dL Urine Opiates Screen Neg NEGATIVE Urine Fentanyl Screen Neg NEGATIVE Urine Barbiturates Screen Neg NEGATIVE Urine Phencyclidine Screen Neg NEGATIVE Urine Amphetamines Screen Neg NEGATIVE Urine Benzodiazepines Screen Neg NEGATIVE Urine Cocaine Screen Neg NEGATIVE Urine Cannabinoids Screen Neg NEGATIVE Plan Plan discussed with: Other Visit Coding OBGYN Date of Service: Feb 27, 2025 Billing Provider: MERVAT SCHILLING DO OPHTHALMIC SURGEON Common Visit Codes: [id number] OBS CARE (MOD) ANNAMARIE SCHNEIDER CNMJul 2024 06:27
[2025-02-27] MEDS: PHISODERM TOP SOLN 240ML BTL TOP PRN (07:56)
[2025-02-27] MEDS: WITCH HAZEL-GLYCERIN PAD TOP PRN (07:56)
[2025-02-27] MEDS: DERMOPLAST 60ML BOTTLE TOP PRN (07:57)
[2025-02-27] MEDS: LIDOCAINE HCL 2 %PF INJ 10ML AMP IJ ONE (12:45)
[2025-02-27] MEDS: NALOXONE HCL 0.4 MG/ML VIAL IV ONE (12:45)
--- NOTE | 2025-02-27 15:05 | DVHHP2 ---
OB CC & HPI Date Date of Admission: Feb 26, 2025 Patient Identification: : 1 Para: 0 EGA: 39.4 Chief Complaints: Reason for admission: induction of labor History of Present Complaints Admitted last night by CNM per Dr Ewing for elective induction of labor G1Po 39+ wk, GBS neg FHR category 1 uncomplicated. Past Medical History Cardiac: No pertinent Hx Pulmonary: No pertinent Hx Central Nervous System: No pertinent Hx GI: No pertinent Hx Hemotology/Oncology: No pertinent Hx Hepatobiliary: No pertinent Hx Psychiatric: No pertinent Hx Musculoskeletal: No pertinent Hx Rheumotologic: No pertinent Hx Infectious Disease: No peritnent Hx ENT: No pertinent Hx Renal/: No pertinent Hx Endocrine: No pertinent Hx Dermatology: No pertinent Hx Past Surgical History: No pertinent Hx OB History OB History Ultrasounds: Normal mid trimester US Obstetrical Complications: None Allergies: Coded Allergies: Pineapple (Verified Allergy, Intermediate, 02/26/25) MOUTH GETS ITCHY Aspirin (Verified Allergy, Mild, FEVER, 02/26/25) Home Meds Active Scripts Amoxicillin Trihydrate (Amoxicillin) 875 Mg Tab, 1 TAB PO BID for 7 Days, #14 TAB Prov:LUKASZ HAYWARD 12/21/24 Loratadine (Claritin) 10 Mg Tab, 1 TAB PO DAILY, #30 TAB 5 Refills Prov:LUKASZ HAYWARD 12/21/24 Reported Medications Cephalexin (KEFLEX CAPSULE) 250 Mg Cp, 500 MG PO QID for 7 Days 01/29/25 Vit W/ Ferrous Fumara ( One Daily) Daily Tab, 1 TAB PO DAILY, #90 TAB 3 Refills 01/21/25 Current Medications Current Medications Medications (Trade) Dose Ordered Sig/Santa Route PRN Reason Start Time Stop Time Status Last Admin Lactated Ringer's 1,000 ml @ 125 mls/hr Q8H IV 02/26/25 20:15 02/26/25 22:45 Nalbuphine HCl (Nubain) 10 mg Q4HP PRN IV MODERATE PAIN (4-6 PAIN SCALE) 02/26/25 20:15 Witch Tatiana (Tucks) 1 pad PRN PRN TOP PERINEAL AREA DISCOMFORT 02/26/25 20:15 02/27/25 07:56 Sodium Lauryl Sulfate (Phisoderm) 240 ml PRN PRN TOP PERINEAL AREA DISCOMFORT 02/26/25 20:15 02/27/25 07:56 Benzocaine (Dermoplast) 1 applic PRN PRN TOP PERINEAL AREA DISCOMFORT 02/26/25 20:15 02/27/25 07:57 Misoprostol (Cytotec) 50 mcg Q4HPRN PRN PO CERVICAL RIPENING 02/26/25 20:15 02/27/25 08:00 Lidocaine HCl (Xylocaine) 20 ml ONCE PRN IJ PERINEAL AREA DISCOMFORT 02/26/25 20:15 Family & Social History Family/Social History Blood Type: O+ Rubella: immune RPR/VDRL: Negative GBS Status: Negative HBsAG: Negative Review of Systems Constitutional: No symptom reported Ears, Nose, & Throat: No symptom reported Eyes: No symptom reported Pulmonary/Respiratory: No symptom reported Cardiovascular: No symptom reported Gastrointestinal: No symptom reported Genitourinary: No symptom reported Musculoskeletal: No symptom reported Skin: No symptom reported Psychiatric: No symptom reported Endocrine: No symptom reported Hemotologic/Lymphatic: No symptom reported OB Admission Exam Physical Exam Vitals: Afeb VS stable HEENT: Oropharynx Normal, PERRLA, Moist Membranes, EOMI Heart: Rhythm Normal Lungs: Clear Abdomen: Non tender Extremities: Normal Reflexes: Normal Cervical Dilatation: 4cm Effacement: 75% Station: -2 Membranes: Ruptured (AROM Clear at 1500p) Amniotic Fluid: Clear Heart Rate: 140's Accelerations: Accelerations Present Decelerations: No Decelerations Short Term Variability: Present Intermediate Variability: Average (6-25) Contractions on Admission: None OB Plan Plan Admitting Diagnosis: 19y G1Po IUP 39 wk, Elective Induction of Labor GBS neg Categ 1 FHR Other Plan: After receiving 2 doses of oral cytotec, patient is now 4cm dilated s/p AROM, clear fluid s/p Epidural status reassuring Continue labor mgmt Pitocin augmentation, if needed, currently labor progressing adequately without need for Oxytocin Will follow closely. Visit Coding OBGYN Date of Service: Feb 27, 2025 Billing Provider: KEARA HOWARD DO PROPERTY INSURANCE AGENT Common Visit Codes: [id number] INP/OBS CARE(HIGH) KEARA HOWARD DO Feb 27, 2025 15:05
[2025-02-27] MEDS ORDERED: TERBUTALINE SULFATE 1 MG/ML 1ML VIAL SC PRN (15:15)
[2025-02-27] MEDS: LACT. RINGERS/OXYTOCIN 20UNITS 500 ML IV ONE ×2 (15:15→15:45)
[2025-02-27] MEDS: LACT. RINGERS/OXYTOCIN 20UNITS 1,000 ML IV SCH (16:47)
[2025-02-27] MEDS: ROPIVACAINE HCL 100 ML ONE ×2 (16:48→23:27)
[2025-02-27] MEDS: ONDANSETRON HCL 4 MG/2 ML VIAL IV PRN (18:58)
[2025-02-27] MEDS: ACETAMINOPHEN 325 MG TAB PO PRN (23:18)
[2025-02-27] MEDS: ceFAZolin 2 GM/D5W50ml 50 ML IV ONE (23:22)
[2025-02-28] VITALS (14 sets, daily range): BP systolic 99–134; BP diastolic 50–87; PULSE 77–104; RESP 12–18; TEMP 98.3–98.6; O2SAT 94–99
[2025-02-28] MEDS ORDERED: CARBOPROST TROMETHAMINE 250 MCG/1ML VIAL IM PRN (05:00)
[2025-02-28] MEDS ORDERED: DIPHENOXYLATE W/ATROPINE 2.5 MG TAB PO PRN (05:00)
[2025-02-28] MEDS ORDERED: METHYLERGONOVINE MALEATE 0.2 MG/ML AMP IM PRN (05:00)
--- NOTE | 2025-02-28 05:56 | DVHPN2 ---
OB Labor Progress Note Date and Time Seen Date Seen: Feb 28, 2025 Time Seen: 05:52 Subjective Patient reports: Other (RN reports no cervical change) Objective Vital Signs Afeb VS stable Monitoring Method Monitoring Method: External Heart Rate Heart Rate Baseline: 150 Heart Rate Variability: Moderate Presence of FHR Accelerations: No Contractions Contractions Intensity: Strong Membranes Membranes: Ruptured Amniotic Fluid Color: Clear Vaginal Exam Vag Exam Deferred: No Vaginal Exam Dilation: 6 Vaginal Exam Effacement: 90 Vaginal Exam Station: -1 Vaginal Exam Presentation: VTX Vaginal Exam Show: None Medications Medications - Pitocin: Yes Medication - Epidural: Yes Lab Results Lab Results Vital Signs Date Time Temp Pulse Resp B/P (MAP) Pulse Ox O2 Delivery O2 Flow Rate FiO2 02/28/25 04:16 98.6 Current Medications Medications (Trade) Dose Ordered Sig/Santa Start Time Stop Time Status Last Admin Dose Admin Lactated Ringer's 1,000 ml @ 125 mls/hr Q8H 02/26/25 20:15 02/27/25 19:01 125 MLS/HR Nalbuphine HCl (Nubain) 10 mg Q4HP PRN 02/26/25 20:15 Witch Tatiana (Tucks) 1 pad PRN PRN 02/26/25 20:15 02/27/25 07:56 1 PAD Sodium Lauryl Sulfate (Phisoderm) 240 ml PRN PRN 02/26/25 20:15 02/27/25 07:56 240 ML Benzocaine (Dermoplast) 1 applic PRN PRN 02/26/25 20:15 02/27/25 07:57 1 APPLIC Misoprostol (Cytotec) 50 mcg Q4HPRN PRN 02/26/25 20:15 02/27/25 08:00 50 MCG Lidocaine HCl (Xylocaine) 20 ml ONCE PRN 02/26/25 20:15 Naloxone HCl (Narcan) 0.2 mg PRN ONCE 02/27/25 12:45 02/27/25 12:48 DC Ephedrine Sulfate (ePHEDrine SULFATE) 10 mg PRN ONCE 02/27/25 12:45 02/27/25 12:48 DC Lidocaine HCl (Xylocaine-Pf 2% Injection) 10 ml ONCE ONCE 02/27/25 12:45 02/27/25 12:48 DC Oxytocin 1,000 ml @ 6 ml/hr Q24H 02/27/25 15:15 02/27/25 16:47 6 ML/HR Terbutaline Sulfate (Brethine Inj) 0.25 mg ONCE PRN 02/27/25 15:15 Oxytocin 500 ml @ 999 mls/hr Q31M ONCE 02/27/25 15:15 02/27/25 15:45 DC Oxytocin 500 ml @ 125 mls/hr Q4H ONCE 02/27/25 15:45 02/27/25 19:44 DC Ondansetron HCl (Zofran) 4 mg Q4HPRN PRN 02/27/25 19:00 02/27/25 23:18 4 MG Cefazolin Sodium/ Dextrose 50 ml @ 50 mls/hr ONCE ONCE 02/27/25 23:00 02/27/25 23:59 DC 02/27/25 23:22 50 MLS/HR Acetaminophen (Tylenol Tablet) 650 mg Q4HP PRN 02/27/25 23:00 02/28/25 03:16 650 MG Carboprost Tromethamine (Hemabate) 250 mcg Q20M PRN 02/28/25 05:00 02/28/25 05:41 DC Methylergonovine Maleate (Methergine) 0.2 mg Q8HP PRN 02/28/25 05:00 03/02/25 04:59 Diphenoxylate HCl/ Atropine (Lomotil Tablet) 5 mg Q12HR PRN 02/28/25 05:00 Laboratory Tests Test 02/26/25 20:35 02/26/25 20:20 Range/Units White Blood Count 7.9 4.4-10.8 10^3/uL Red Blood Count 4.87 4.0-5.20 10^6/uL Hemoglobin 11.4 L 12.2-16.2 g/dL Hematocrit 34.3 L 36.0-46.0 % Mean Corpuscular Volume 70.3 L 80.0-100.0 fL Mean Corpuscular Hemoglobin 23.4 L 28.0-32.0 pg Mean Corpuscular Hemoglobin Concent 33.3 32.0-36.0 g/dL Red Cell Distribution Width 24.2 H 11.8-14.3 % Platelet Count 336 140-450 10^3/uL Mean Platelet Volume 8.0 6.9-10.8 fL Neutrophils (%) (Auto) 65.5 37.0-80.0 % Lymphocytes (%) (Auto) 23.1 10.0-50.0 % Monocytes (%) (Auto) 9.7 0.0-12.0 % Eosinophils (%) (Auto) 1.2 0.0-7.0 % Basophils (%) (Auto) 0.5 0.0-2.0 % Neutrophils # (Auto) 5.2 1.6-8.6 10 ^3/uL Lymphocytes # (Auto) 1.8 0.4-5.4 10 ^3/uL Monocytes # (Auto) 0.8 0-1.3 10 ^3/uL Eosinophils # (Auto) 0.1 0-0.8 10 ^3/uL Basophils # (Auto) 0 0-0.2 10 ^3/uL Nucleated Red Blood Cells 0.1 % Prothrombin Time 10.1 9.3-11.8 sec Prothrombin Time INR 0.95 0.9-1.15 Activated Partial Thromboplast Time 26.4 24.5-34.5 SEC Sodium Level 139 136-145 mmol/L Potassium Level 4.0 3.5-5.1 mmol/L Chloride Level 107 98-107 mmol/L Carbon Dioxide Level 19 L 20-31 mmol/L Anion Gap 13 5-15 Blood Urea Nitrogen 10 9-23 mg/dL Creatinine 0.60 0.550-1.02 mg/dL Glomerular Filtration Rate Calc 131 >90 mL/min BUN/Creatinine Ratio 16.7 10.0-20.0 Serum Glucose 74 74-106 mg/dL Uric Acid 6.1 3.1-7.8 mg/dL Calcium Level 10.0 8.7-10.4 mg/dL Total Bilirubin 0.3 0.2-1.0 mg/dL Aspartate Amino Transferase (AST) 17 13-40 U/L Alanine Aminotransferase (ALT) < 9 7-40 U/L Alkaline Phosphatase 365 H 46-116 U/L Total Protein 6.9 5.7-8.2 g/dL Albumin 4.3 3.2-4.8 g/dL Treponema pallidum Antibody Non-reactive Negative Hepatitis B Surface Antigen Negative Negative Hepatitis C Antibody Negative Negative HIV (1&2) Antibody Negative Negative Urine Color Yellow Yellow Urine Clarity Turbid H Clear Urine pH 6.0 5.0-9.0 Urine Specific [place] 1.023 1.001-1.035 Urine Protein Trace H Negative Urine Ketones Negative Negative Urine Blood 1+ H Negative /uL Urine Nitrite Negative Negative Urine Bilirubin Negative Negative Urine Urobilinogen Normal Negative mg/dL Urine Leukocyte Esterase 1+ Negative /uL Urine RBC 5 0 - 4 /hpf Urine Microscopic WBC 9 H 0-5 /HPF Urine Squamous Epithelial Cells Few <5 /hpf Urine Bacteria Few H None Seen /hpf Urine Mucus Few None Seen Urine Creatinine 168.01 H 30.0-125.0 mg/dL Urine Total Protein 24 Hour 283.5 <149.1 mg/24 Hr Urine Protein/Creatinine Ratio 0.29 Urine Glucose Normal Normal mg/dL Urine Total Protein 18.9 H 1-14 mg/dL Urine Opiates Screen Neg NEGATIVE Urine Fentanyl Screen Neg NEGATIVE Urine Barbiturates Screen Neg NEGATIVE Urine Phencyclidine Screen Neg NEGATIVE Urine Amphetamines Screen Neg NEGATIVE Urine Benzodiazepines Screen Neg NEGATIVE Urine Cocaine Screen Neg NEGATIVE Urine Cannabinoids Screen Neg NEGATIVE Assessment Assessment Failed induction of labor , 39+ wk Arrest of dilation at 6cm despite adequate contractions and IV Pitocin for > 6 hours Cephalopelvic disproportion Plan Plan Consented for primary C/Section due to failure to progress IV Ancef 2gm and Azithromycin 500mg ordered R/B/A of surgery reviewed. Informed consent obtained Risks of anesthesia, risks of surgery including scar, bleeding, infection, poss injury to bowel/bladder, adjacent organs all discussed w/ patient in detail. Agrees to proceed. Plan discussed with: Patient Visit Coding OBGYN Date of Service: Feb 28, 2025 Billing Provider: KEARA HOWARD DO COMPENSATION CONSULTANT Common Visit Codes: [id number] INP/OBS CARE(HIGH) KEARA HOWARD DO Feb 28, 2025 05:56
[2025-02-28] MEDS: AZITHROMYCIN 500MG/ 250ML 250 ML IV ONE (06:17)
[2025-02-28] MEDS: ceFAZolin 2 GM/D5W50ml 50 ML IV ONE (06:28)
[2025-02-28] MEDS ORDERED: KETOROLAC TROMETH 30 MG/ML 1ML VIAL ONE (06:54)
[2025-02-28] MEDS ORDERED: ONDANSETRON HCL 4 MG/2 ML VIAL ONE (06:54)
[2025-02-28] MEDS ORDERED: fentaNYL CITRATE 100 MCG/2 ML VL ONE (06:55)
[2025-02-28] MEDS ORDERED: MORPHINE SULF PF 5 MG/10 ML VIAL ONE (06:55)
[2025-02-28] MEDS: METHYLERGONOVINE MALEATE 0.2 MG/ML AMP IM ONE (07:33)
[2025-02-28] MEDS: CARBOPROST TROMETHAMINE 250 MCG/1ML VIAL IM ONE (07:50)
[2025-02-28] MEDS ORDERED: HYDROmorphone HCL 2 MG/ML VL/or syr IV PRN (08:15)
[2025-02-28] MEDS ORDERED: ONDANSETRON HCL 4 MG/2 ML VIAL IV PRN (08:15)
[2025-02-28] MEDS ORDERED: NALBUPHINE HCL 10 MG/1ml INJECTION IV ONE (08:15)
[2025-02-28] MEDS ORDERED: NALOXONE HCL 0.4 MG/ML VIAL IV PRN (08:15)
--- NOTE | 2025-02-28 08:21 | DVHOP2 ---
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 These include but are not limited to complications of anesthesia, postoperative infection, incomplete relief of symptoms, recurrence of symptoms, damage to blood vessels, nerves and tendons, deep venous thrombosis, pulmonary embolism and possible need for repeat surgery in the future. Complications: None Estimated Blood Loss: 800 mL Findings: Findings: Viable male infant in cephalic presentation. Apgars 8 and 9. Clear amniotic fluid. Intact placenta, three vessel cord. Normal, fallopian tubes and ovaries bilaterally. 2 layer uterine closure. Uterus is unicornuate, in left horn/asymmetric uterus. A fibroid/nodule or small remnant in right cornual region. A single uterine cavitly with no septum on manual palpation. Uterine atony severe, requiring Methergine and Hemabate intramuscularly into the uterine wall. A narrow pelvis with caput, molding noted (moderate) Indications for Surgery: Arrest of dilation 6cm Name of Procedure Performed Primary Low Transverse Section Delivery via Pfannensteil skin Incision Procedure Details Procedure Details: TECHNICAL PROCEDURE: After informed consent was obtained, the patient was taken to the operating room where her epidural anesthesia was found to be adequate. She was placed in the supine position with a slight leftward tilt. She was sterilely prepped and draped in usual fashion. A Pfannenstiel skin incision was made. The scar developed sharply to the underlying layer of fascia. The fascia was incised in the midline and extended laterally by sharp dissection. The rectus muscles were bluntly dissected off the rectus fascia and entry into the peritoneal cavity was performed bluntly. The peritoneal incision was extended superiorly and inferiorly with good visualization of the bladder. The Carter- O retractor was placed into the incision. Using a second scalpel, the lower uterine segment was incised in a low transverse fashion. The incision was manually extended using digital technique. The baby was found to be deep in the pelvis, occiput posterior. head molding and caput were note. The baby was delivered atraumatically. After 30 seconds, the cord was clamped and cut and the baby handed off to awaiting pediatric team. Cord blood was obtained. The placenta was then spontaneously delivered, intact. The uterus was exteriorized and cleared of all clots and debris using moist laparotomy sponges. The uterine incision was repaired with #1 PDS Stratafix spiral in 2 layers. Excellent tissue approximation and hemostasis was noted. The cul-de-sac and paracolic gutters were cleared of all blood clots and debris. The uterus was returned to the abdomen. Sterile water was used for irrigation. The irrigant was clear. SNOW was placed at the vesicouterine peritoneal surface to help with minor oozing. All instruments were then removed from the patient's abdomen after hemostasis was confirmed. I then proceeded to close the rectus fascia using #1 PDS in continuous running fashion. The subcutaneous tissue was then approximated with 2-0 plain gut and the skin closed in subcuticular fashion using 2-0 Stratafix Monocryl. A thin layer of Dermabond was then placed. After the Dermabond dried, the SYLKE dressing was placed over the incision. The patient tolerated the procedure well. Sponge, lap, needle counts were correct x4. INTRAOPERATIVE COMPLICATIONS: None. ESTIMATED BLOOD LOSS: 800 mL. POSTOPERATIVE CONDITION: Stable. SPECIMENS: Cord blood, placenta MEDICATIONS: The patient received 2 grams of Ancef and Azithromycin 500mg IV prior to skin incision and IV Pitocin at the time of cord clamp. Intrauterine injection of Methergine and Hemabate Specimen: Cord blood, placenta Specimen: Cord blood/ Placenta Condition Stable Disposition Still a Patient Visit Coding OBGYN Date of Service: Feb 28, 2025 Billing Provider: JAD HOWARD DO RIPPLER Common Visit Codes: PROCEDURE ONLY RIPPLER Procedure Codes: [id number] OB CARE, JAD RODRIGUEZ DO Feb 28, 2025 08:21
[2025-02-28] MEDS: DIPHENOXYLATE W/ATROPINE 2.5 MG TAB PO SCH (08:45)
[2025-02-28] MEDS ORDERED: ACETAMINOPHEN IV 1000 MG/100ML (10MG/ML) IV PRN (09:00)
[2025-02-28] MEDS: diphenhdrAMINE HCL 50 MG/1 ML VL IV PRN (12:26)
[2025-02-28] MEDS: ceFAZolin 1GM/50ML 50 ML IV SCH (14:26)
[2025-02-28] MEDS: ACETAMINOPHEN IV 1000 MG/100ML (10MG/ML) IV PRN (20:13)
[2025-03-01] VITALS (12 sets, daily range): BP systolic 99–117; BP diastolic 48–76; PULSE 85–100; RESP 15–18; TEMP 97.6–98.4; O2SAT 95–99
--- NOTE | 2025-03-01 06:31 | DVHPN2 ---
Progress Note Date Seen: Mar 01, 2025 Subjective POD#1 s/p primary low transv c/section for CPD/Arrest of dilation S: doing well. Pain moderate. lochia mild to moderate. No N/V or fever. vital signs Vital Sign Date Time Temp Pulse Resp B/P (MAP) Pulse Ox O2 Delivery O2 Flow Rate FiO2 03/01/25 05:00 96 16 99/65 (76) 96 03/01/25 03:00 97.6 97.6 02/28/25 19:00 Room Air Total Intake and Output 02/28/25 02/28/25 03/01/25 15:00 23:00 07:00 Output Total 150 ml 2250 ml 1200 ml Balance -150 ml -2250 ml -1200 ml medications Current Medications Medications Dose Ordered Sig/Santa Route Start Time Stop Time Status Last Admin Dose Admin Lactated Ringer's 1,000 ml @ 125 mls/hr Q8H IV 02/26/25 20:15 02/27/25 19:01 125 MLS/HR Nalbuphine HCl 10 mg Q4HP PRN IV 02/26/25 20:15 Cancel Witch Tatiana 1 pad PRN PRN TOP 02/26/25 20:15 02/27/25 07:56 1 PAD Sodium Lauryl Sulfate 240 ml PRN PRN TOP 02/26/25 20:15 02/27/25 07:56 240 ML Benzocaine 1 applic PRN PRN TOP 02/26/25 20:15 02/27/25 07:57 1 APPLIC Lidocaine HCl 20 ml ONCE PRN IJ 02/26/25 20:15 Cancel Terbutaline Sulfate 0.25 mg ONCE PRN SC 02/27/25 15:15 Cancel Acetaminophen 650 mg Q4HP PRN PO 02/27/25 23:00 02/28/25 03:16 650 MG Methylergonovine Maleate 0.2 mg Q8HP PRN IM 02/28/25 05:00 03/02/25 04:59 Diphenhydramine HCl 25 mg Q4HP PRN IV 02/28/25 08:15 02/28/25 12:26 25 MG Ondansetron HCl 4 mg Q4HP PRN IV 02/28/25 08:15 Cefazolin Sodium 50 ml @ 100 mls/hr Q8H IV 02/28/25 14:30 03/01/25 06:59 02/28/25 22:33 100 MLS/HR Acetaminophen 1,000 mg [id number] PRN IV 02/28/25 19:00 03/01/25 18:59 02/28/25 20:13 1,000 MG laboratory and microbiology Laboratory Tests 02/26/25 20:35 Test 02/26/25 20:35 Range/Units Serum Glucose 74 74-106 mg/dL Objective O: AFVSS Chest: heart and lung sounds normal. Abd soft, non-tender, fundus firm, BS, no rebound or guarding, Incision - dressing and incision clean, dry, intact Ext Neg Homans, Non-tender, edema Lochia - minimal Labs Pending Assessment/Plan POD#1 s/p 1' C/S doing well Continue supportive care pain control meeting all recovery milestones possible D/C tomorrow Plan discussed with: Patient Visit Coding OBGYN Date of Service: Mar 01, 2025 Billing Provider: KEARA HOWARD DO [employer] Common Visit Codes: [id number] INP/OBS CARE(MOD) KEARA HOWARD DO Mar 01, 2025 06:31
[2025-03-01] MEDS ORDERED: HYDR-4902 PO (06:33)
[2025-03-01] MEDS ORDERED: IBUP-1456 PO (06:33)
[2025-03-01] MEDS ORDERED: FERR30CA PO (06:33)
[2025-03-01] MEDS ORDERED: BISACODYL 10 MG RECT SUPP PR PRN (08:45)
[2025-03-01] MEDS ORDERED: HYDROcodone-ACET 5/325MG TAB PO PRN ×2 (08:45)
[2025-03-01 09:50] LABS: Hematocrit 23.2 % (36.0-46.0); Hemoglobin 7.7 g/dL (12.2-16.2); Mean Corpuscular Hemoglobin 23.5 pg (28.0-32.0); Mean Corpuscular Volume 70.9 fL (80.0-100.0); Nucleated Red Blood Cells % 0.1 %
[2025-03-01 09:54] LABS: Anion Gap 11 (5-15); BUN/Creatinine Ratio 12.3 (10.0-20.0); Calcium 8.9 mg/dL (8.7-10.4); Carbon Dioxide 23 mmol/L (20-31); Chloride 107 mmol/L (98-107); Sodium 141 mmol/L (136-145)
[2025-03-01 10:07] LABS: Alanine Aminotransferase < 9 U/L (7-40); Albumin 3.1 g/dL (3.2-4.8); Alkaline Phosphatase 208 U/L (46-116); Bilirubin, Total 0.2 mg/dL (0.2-1.0); Blood Urea Nitrogen 8 mg/dL (9-23); Glucose 131 mg/dL (74-106); Potassium 3.3 mmol/L (3.5-5.1); Total Protein 5.0 g/dL (5.7-8.2)
[2025-03-01] MEDS: FERROUS SULFATE 325mg EC TAB PO SCH (10:16)
[2025-03-01] MEDS: IBUPROFEN 800 MG TAB PO PRN (10:16)
[2025-03-01] MEDS: DOCUSATE SOD 100 MG CAP PO SCH (10:16)
[2025-03-01] MEDS: SIMETHICONE 80 MG CHEWABLE TABLET PO SCH (11:45)
[2025-03-01] MEDS: POTASSIUM CHL 20 Meq TABLET PO ONE (12:35)
[2025-03-01] MEDS: IRON SUCROSE COMPLEX 110 ML IV SCH (12:37)
[2025-03-01] MEDS: HYDROcodone-ACET 5/325MG TAB PO PRN (14:23)
[2025-03-01] MEDS ORDERED: ACETAMINOPHEN 325 MG TAB PO PRN (18:00)
[2025-03-02 03:11] VITALS: BP 126/77; PULSE 72; RESP 17; TEMP 98; O2SAT 100
[2025-03-02 04:06] LABS: Hematocrit 22.4 % (36.0-46.0); Hemoglobin 7.5 g/dL (12.2-16.2); Mean Corpuscular Hemoglobin 23.8 pg (28.0-32.0); Mean Corpuscular Volume 71.7 fL (80.0-100.0); Nucleated Red Blood Cells % 0.1 %
[2025-03-02 04:51] LABS: Anisocytosis Slight
[2025-03-02 07:09] VITALS: BP 114/63; PULSE 88; RESP 18; TEMP 97.9; O2SAT 98
--- NOTE | 2025-03-02 07:48 | DVHDS2 ---
Discharge Summary Date of Admission Feb 26, 2025 at 20:04 Date of Discharge: Mar 02, 2025 Admitting Diagnosis Term , elective labor induction 39+ weeks Labs/Diagnostic Data: Laboratory Results Test 03/02/25 03:38 03/01/25 08:36 02/26/25 20:35 02/26/25 20:20 White Blood Count 13.0 10^3/uL (4.4-10.8) Red Blood Count 3.13 10^6/uL (4.0-5.20) Hemoglobin 7.5 g/dL (12.2-16.2) Hematocrit 22.4 % (36.0-46.0) Mean Corpuscular Volume 71.7 fL (80.0-100.0) Mean Corpuscular Hemoglobin 23.8 pg (28.0-32.0) Mean Corpuscular Hemoglobin Concent 33.2 g/dL (32.0-36.0) Red Cell Distribution Width 25.3 % (11.8-14.3) Platelet Count 323 10^3/uL (140-450) Mean Platelet Volume 7.6 fL (6.9-10.8) Neutrophils (%) (Auto) 66.4 % (37.0-80.0) Lymphocytes (%) (Auto) 23.3 % (10.0-50.0) Monocytes (%) (Auto) 8.4 % (0.0-12.0) Eosinophils (%) (Auto) 1.3 % (0.0-7.0) Basophils (%) (Auto) 0.6 % (0.0-2.0) Neutrophils # (Auto) 8.6 10 ^3/uL (1.6-8.6) Lymphocytes # (Auto) 3.0 10 ^3/uL (0.4-5.4) Monocytes # (Auto) 1.1 10 ^3/uL (0-1.3) Eosinophils # (Auto) 0.2 10 ^3/uL (0-0.8) Basophils # (Auto) 0.1 10 ^3/uL (0-0.2) Nucleated Red Blood Cells 0.1 % Platelet Estimate Adequate Hypochromasia (manual) Slight Anisocytosis (manual) Slight Microcytosis Moderate Potassium Level 3.8 mmol/L (3.5-5.1) Sodium Level 141 mmol/L (136-145) Chloride Level 107 mmol/L (98-107) Carbon Dioxide Level 23 mmol/L (20-31) Anion Gap 11 (5-15) Blood Urea Nitrogen 8 mg/dL (9-23) Creatinine 0.65 mg/dL (0.550-1.02) Glomerular Filtration Rate Calc 128 mL/min (>90) BUN/Creatinine Ratio 12.3 (10.0-20.0) Serum Glucose 131 mg/dL (74-106) Calcium Level 8.9 mg/dL (8.7-10.4) Total Bilirubin 0.2 mg/dL (0.2-1.0) Aspartate Amino Transferase (AST) 16 U/L (13-40) Alanine Aminotransferase (ALT) < 9 U/L (7-40) Alkaline Phosphatase 208 U/L (46-116) Total Protein 5.0 g/dL (5.7-8.2) Albumin 3.1 g/dL (3.2-4.8) Prothrombin Time 10.1 sec (9.3-11.8) Prothrombin Time INR 0.95 (0.9-1.15) Activated Partial Thromboplast Time 26.4 SEC (24.5-34.5) Uric Acid 6.1 mg/dL (3.1-7.8) Treponema pallidum Antibody Non-reactive (Negative) Hepatitis B Surface Antigen Negative (Negative) Hepatitis C Antibody Negative (Negative) HIV (1&2) Antibody Negative (Negative) Urine Color Yellow (Yellow) Urine Clarity Turbid (Clear) Urine pH 6.0 (5.0-9.0) Urine Specific [place] 1.023 (1.001-1.035) Urine Protein Trace (Negative) Urine Ketones Negative (Negative) Urine Blood 1+ /uL (Negative) Urine Nitrite Negative (Negative) Urine Bilirubin Negative (Negative) Urine Urobilinogen Normal mg/dL (Negative) Urine Leukocyte Esterase 1+ /uL (Negative) Urine RBC 5 /hpf (0 - 4) Urine Microscopic WBC 9 /HPF (0-5) Urine Squamous Epithelial Cells Few /hpf (<5) Urine Bacteria Few /hpf (None Seen) Urine Mucus Few (None Seen) Urine Creatinine 168.01 mg/dL (30.0-125.0) Urine Total Protein 24 Hour 283.5 mg/24 Hr (<149.1) Urine Protein/Creatinine Ratio 0.29 Urine Glucose Normal mg/dL (Normal) Urine Total Protein 18.9 mg/dL (1-14) Urine Opiates Screen Neg (NEGATIVE) Urine Fentanyl Screen Neg (NEGATIVE) Urine Barbiturates Screen Neg (NEGATIVE) Urine Phencyclidine Screen Neg (NEGATIVE) Urine Amphetamines Screen Neg (NEGATIVE) Urine Benzodiazepines Screen Neg (NEGATIVE) Urine Cocaine Screen Neg (NEGATIVE) Urine Cannabinoids Screen Neg (NEGATIVE) Other Laboratory Tests 03/02/25 03:38 03/01/25 08:36 Brief Hx & Hospital Course: Patient admitted for IOL, progressed only to 6cm dilation w/ arrest of dilation CPD found, uterine anomaly noted. 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 Secondary Diagnosis: Precipitous drop in H/H Discharge Disposition: Home Discharge Instruct/Medications Diet: Regular Activity: Light activity Activity comment: Pelvic rest x 6 wk Follow Up/Referral: [address] Ewing for wound check Scheduled Amoxicillin Trihydrate (Amoxicillin), 1 TAB PO BID Cephalexin (Keflex Capsule), 500 MG PO QID, (Reported) Ferric Maltol (Accrufer), 30 MG PO BID Ibuprofen (Ibuprofen), 1 TAB PO TID Loratadine (Claritin), 1 TAB PO DAILY Vit W/ Ferrous Fumara ( One Daily), 1 TAB PO DAILY, (Reported) Scheduled PRN Hydrocodone-Acetaminophen (Hydrocodone Bitartrate/AC 5-325 mg), 1 TAB PO Q6HPRN PRN Discharge Statement: "Patient was advised to return to the ER or call 911 if any headaches, dizziness, shortness of breath, chest pain, abdominal pain, bleeding, fevers, or worsening of medical condition. Patient was counseled about treatment plan, medications, possible side effects, patientverbalized understanding. All questions were answered to the best of my ability. 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
[2025-03-02 09:35] VITALS: BP 127/81; PULSE 96; RESP 16; TEMP 98.5; O2SAT 97
[2025-03-02] MEDS: FERROUS SULFATE 325mg EC TAB PO SCH (09:39)
== END 2025-03-02 09:45 | disposition home or self-care (01) | DRG 788 ==
LOC: PREOBSVTOIN 02-26 20:01 → LDRP 02-26 20:04
PROVIDERS: ADMIT Obstetrics & Gynecology; ATTEND Obstetrics & Gynecology
PROC: 10907ZC Drainage of Amniotic Fluid, Therapeutic from Products of Conception, Via Natural or Artificial Opening (ICD-10-PCS; 2025-02-28)
PROC: 3E0DXGC Introduction of Other Therapeutic Substance into Mouth and Pharynx, External Approach (ICD-10-PCS; 2025-02-28)
PROC: 10D00Z1 Extraction of Products of Conception, Low, Open Approach (ICD-10-PCS; principal; 2025-02-28 06:59)
DX: O62.0 Primary inadequate contractions (principal); O34.03 Maternal care for unspecified congenital malformation of uterus, third trimester; Z3A.39 39 weeks gestation of pregnancy; Q51.4 Unicornate uterus; O33.9 Maternal care for disproportion, unspecified; Z37.0 Single live birth; Z88.6 Allergy status to analgesic agent
CPT/HCPCS: 36415; 59025; 62282; 80053; 80307; 81001; 82570; 84132; 84156; 84550; 85025; 85610; 85730; 86703; 86780; 86803; 86850; 86900; 86901; 87340; 94760; 94762; 96360; 96361; 96365; 96366; 96374; 96375; G0378; J0131; J1100; J1756; J1885; J2405; J2590